=== PATIENT | female | born 1955 | race Caucasian/White ===

== ENCOUNTER 2017-06-26 12:03 | Observation (INO) | payer OTHER ==
[2017-06-26 13:10] LABS: ADD MAN DIFF? NO
[2017-06-26 13:20] LABS: BASO # 0.1 x10^3/uL (0.0-0.2); BASO % 1 % (0-3); EOS % 0 % (0-3); HEMATOCRIT 42.2 % (36.0-47.0); HEMOGLOBIN 14.4 g/dL (12.0-15.5); LYMPH # 1.4 x10^3/uL (1.0-4.8); LYMPH % 16 % (24-48); MEAN CORPUSCULAR HEMOGLOBIN 31 pg (25-35); MEAN CORPUSCULAR HGB CONC 34 g/dL (31-37); MEAN CORPUSCULAR VOLUME 90 fL (79-100); MONO # 0.5 x10^3/uL (0.0-1.1); MONO % 5 % (0-9); NEUT # 7.2 x10^3uL (1.8-7.7); NEUT % 78 % (31-73); PLATELET COUNT 262 x10^3/uL (140-400); RED CELL DISTRIBUTION WIDTH 13.8 % (11.5-14.5); WHITE BLOOD COUNT 9.3 x10^3/uL (4.0-11.0)
[2017-06-26 13:26] LABS: ANION GAP 13 (6-14); BLOOD UREA NITROGEN 9 mg/dL (7-20); BUN/CREATININE RATIO 8 (6-20); CALCIUM 9.1 mg/dL (8.5-10.1); CARBON DIOXIDE 26 mmol/L (21-32); CHLORIDE 97 mmol/L (98-107); CREATININE 1.1 mg/dL (0.6-1.0); GFR 50.2; GLUCOSE 117 mg/dL (70-99); POTASSIUM 3.6 mmol/L (3.5-5.1); SODIUM 136 mmol/L (136-145)
[2017-06-26] MEDS: IV NORMAL SALINE 1000ML BAG 1,000 ML IV ×3 (13:29→20:00)
[2017-06-26 13:30] LABS: PARTIAL THROMBOPLASTIN TIME 30 SEC (24-38); PROTHROMBIN TIME PATIENT 13.1 SEC (11.7-14.0)
[2017-06-26] MEDS: ONDANSETRON PF 4 MG/2 ML VIAL. IV (13:31)
[2017-06-26 13:34] LABS: ALBUMIN 3.5 g/dL (3.4-5.0); ALBUMIN/GLOBULIN RATIO 0.7 (1.0-1.7); ALK PHOS 85 U/L (46-116); ALT (SGPT) 21 U/L (14-59); AST (SGOT) 19 U/L (15-37); TOTAL BILIRUBIN 0.7 mg/dL (0.2-1.0); TOTAL PROTEIN 8.5 g/dL (6.4-8.2)
[2017-06-26 13:37] LABS: BILIRUBIN,URINE NEGATIVE (NEG); CLARITY,URINE CLEAR; COLOR,URINE YELLOW; GLUCOSE,URINE NEGATIVE (NEG); NITRITE,URINE NEGATIVE (NEG); PH,URINE 5.5; PROTEIN,URINE NEGATIVE (NEG-TRACE); UROBILINOGEN,URINE 0.2 mg/dL (0.2 mg/dL)
[2017-06-26 13:39] LABS: FECAL OB PT NEGATIVE (NEG); NEG OBC FOB NEG; POS OBC FOB POS
[2017-06-26 14:18] LABS: BACTERIA,URINE FEW /HPF (0-FEW); RBC,URINE OCC /HPF (0-2); SQUAMOUS EPITHELIAL CELL,UR MOD /LPF
[2017-06-26] MEDS ORDERED: ONDANSETRON PF 4 MG/2 ML VIAL. IV (15:30)
[2017-06-26] MEDS ORDERED: ACETAMINOPHEN 325 MG TABLET. PO (15:30)
[2017-06-26] MEDS ORDERED: fentaNYL PF VIAL 100 MCG/2 ML VIAL IV (15:30)
[2017-06-26] MEDS ORDERED: CONTRAST GIVEN MC (16:45)
[2017-06-26] MEDS: IOHEXOL 300 MG/ML 100ML VIAL. IV (16:45)
[2017-06-26] MEDS ORDERED: FAMOTIDINE 20 MG TABLET. PO (21:00)
[2017-06-26] MEDS: RANITIDINE 150MG PO (21:30)
[2017-06-26] MEDS: SIMVASTATIN 40 MG TABLET. PO (21:30)
[2017-06-27] MEDS: HCTZ PO (08:30)
[2017-06-27] MEDS: LISINOPRIL PO (08:30)
[2017-06-27] MEDS: CHLORDIAZEPOXIDE 10 MG PO (08:31)
[2017-06-27] MEDS: SPIRONOLACTONE 25 MG TABLET PO (08:31)
[2017-06-27] MEDS: RANITIDINE 150MG PO (08:32)
[2017-06-27] MEDS ORDERED: hydroCHLOROthiazide 12.5 MG CAPSULE PO (09:00)
[2017-06-27] MEDS ORDERED: SPIRONOLACTONE 25 MG TABLET PO (09:00)
[2017-06-27] MEDS ORDERED: LISINOPRIL 10 MG TABLET PO (09:00)
[2017-06-27 09:45] LABS: ANION GAP 10 (6-14); BLOOD UREA NITROGEN 6 mg/dL (7-20); CALCIUM 8.4 mg/dL (8.5-10.1); CARBON DIOXIDE 27 mmol/L (21-32); CHLORIDE 102 mmol/L (98-107); CREATININE 0.9 mg/dL (0.6-1.0); GFR 63.2; GLUCOSE 103 mg/dL (70-99); POTASSIUM 4.5 mmol/L (3.5-5.1); SODIUM 139 mmol/L (136-145)
[2017-06-27] MEDS ORDERED: ACETAMINOPHEN 325 MG TABLET. PO (13:00)
[2017-06-27] MEDS ORDERED: PANTOPRAZOLE IV PUSH 40 MG VIAL. IVP (13:00)
[2017-06-27] MEDS ORDERED: fentaNYL PF VIAL 100 MCG/2 ML VIAL IV (13:00)
[2017-06-27] MEDS ORDERED: DOCUSATE SODIUM 100 MG CAPSULE. PO (13:00)
[2017-06-27] MEDS ORDERED: hydrALAZINE 20 MG/ML VIAL. IVP (13:00)
[2017-06-27] MEDS ORDERED: ONDANSETRON PF 4 MG/2 ML VIAL. IV (13:00)
[2017-06-27] MEDS: PANTOPRAZOLE 40 MG TABLET.DR. PO (13:23)
[2017-06-27 15:05] LABS: ADD MAN DIFF? NO
[2017-06-27 15:06] LABS: BASO % 1 % (0-3); EOS # 0.1 x10^3/uL (0.0-0.7); EOS % 1 % (0-3); HEMATOCRIT 38.2 % (36.0-47.0); HEMOGLOBIN 13.1 g/dL (12.0-15.5); LYMPH # 1.5 x10^3/uL (1.0-4.8); LYMPH % 22 % (24-48); MEAN CORPUSCULAR HEMOGLOBIN 31 pg (25-35); MEAN CORPUSCULAR HGB CONC 34 g/dL (31-37); MEAN CORPUSCULAR VOLUME 90 fL (79-100); MONO # 0.5 x10^3/uL (0.0-1.1); MONO % 7 % (0-9); NEUT # 4.9 x10^3uL (1.8-7.7); NEUT % 69 % (31-73); PLATELET COUNT 211 x10^3/uL (140-400); RED BLOOD COUNT 4.26 x10^6/uL (3.50-5.40); RED CELL DISTRIBUTION WIDTH 13.6 % (11.5-14.5); WHITE BLOOD COUNT 7.1 x10^3/uL (4.0-11.0)
== END 2017-06-27 17:30 | disposition home or self-care (01) ==
LOC: ER 12:03 → 6 SOUTH 15:17
DX: K92.1 Melena (principal); K21.9 Gastro-esophageal reflux disease without esophagitis; E78.00 Pure hypercholesterolemia, unspecified; E66.01 Morbid (severe) obesity due to excess calories; E78.5 Hyperlipidemia, unspecified; I10 Essential (primary) hypertension; F41.9 Anxiety disorder, unspecified; K92.2 Gastrointestinal hemorrhage, unspecified
CPT/HCPCS: 36415; 74177; 76770; 80048; 80053; 81001; 82274; 85025; 85610; 85730; 86850; 86900; 86901; 96361; 96374; 99285-25; G0378; G0379; J2405; J7030; Q9967